=== PATIENT | female | born 1955 | race Caucasian/White ===

== ENCOUNTER 2018-09-10 01:18 | Emergency (ER) | payer MEDICAID ==
[~2018-09-10] VITALS: Ht 152.4 cm; Wt 54.5 kg
[2018-09-10 01:34] VITALS: Ht 152.4 cm; Wt 54.5 kg
[2018-09-10] MEDS ORDERED: LISINOPRIL20 MG PO ×2 (01:35→01:56)
[2018-09-10] MEDS ORDERED: CORTISPORIN OTI10 M1 EACH EAR (01:53)
[2018-09-10 02:20] VITALS: BP 140/70
== END 2018-09-10 02:21 | disposition home or self-care (01) ==
LOC: D.ER 01:18
DX: H60.92 Unspecified otitis externa, left ear (principal); I10 Essential (primary) hypertension; Z91.14 Patient's other noncompliance with medication regimen

== ENCOUNTER 2020-04-28 20:23 | Emergency (ER) | payer MEDICAID ==
[~2020-04-28] VITALS: Ht 152.4 cm; Wt 56.8 kg
[~2020-04-28 20:23] MED LIST: CORTISPORIN OTI10 M1 EACH EAR; LISINOPRIL20 MG PO
[2020-04-28 20:35] VITALS: Ht 152.4 cm; Wt 56.8 kg
[2020-04-28 20:59] LABS: BASOPHILS 0.4 % (0-2); EOSINOPHILS 3.4 % (0-7); HEMOGLOBIN 12.8 g/dL (12-16); IMMATURE GRANULOCYTES 0.4 % (0-5); LYMPHOCYTE ABS# 1.85 10x3/uL (1.18-3.74); LYMPHOCYTES 23.2 % (15-50); MCH 29.2 pg (26.0-34.0); MCHC 33.7 g/dL (31.0-37.0); MCV 86.6 fL (80.0-100.0); NEUTROPHIL ABS# 4.92 10x3/uL (1.56-6.13); NEUTROPHILS 61.6 % (40-80); PLATELET COUNT 263 10x3/uL (130-400); RBC 4.39 10x6/uL (4.00-5.40); RDW 13.8 % (11.5-14.5)
[2020-04-28 21:11] LABS: CALC OSMOLALITY 281 mosm/kg (275-300); CALCIUM 9.1 mg/dL (8.5-10.1); CARBON DIOXIDE 23.4 mmol/L (21.0-32.0); CHLORIDE - SERUM 105 mmol/L (98-107); CREATININE - SERUM 1.5 mg/dL (0.6-1.3); GLUCOSE 112 mg/dL (74-106); POTASSIUM - SERUM 3.8 mmol/L (3.5-5.1); SODIUM 138 mmol/L (136-145); UREA NITROGEN 26 mg/dL (7-18); eGFR NON AFRICAN AMERICAN 37 mL/min (90-120)
[2020-04-28 21:14] LABS: APTT 24.9 SECONDS (22.8-39.4); INR 0.96 (0.85-1.17); PROTIME 11.8 SECONDS (11.6-15.0)
[2020-04-28 21:15] LABS: D-DIMER-QUANTITATIVE 0.99 ug/mLFEU (0.20-0.54)
[2020-04-28 21:28] LABS: ALBUMIN 3.7 g/dL (3.4-5.0); ALKALINE PHOSPHATASE 198 U/L (30-120); ALT (SGPT) 36 U/L (10-68); BILIRUBIN - TOTAL 0.51 mg/dL (0.2-1.3); CKMB 1.4 U/L (0.0-3.6); CREATINE KINASE 105 UL (21-215); MAGNESIUM - SERUM 2.2 mg/dL (1.8-2.4); PRO BNP 307 pg/mL (0-125); PROTEIN - SERUM 7.6 g/dL (6.4-8.2); TROPONIN-I < 0.017 ng/mL (0.000-0.060)
[2020-04-28 22:35] LABS: BILIRUBIN NEGATIVE (NEGATIVE); KETONE NEGATIVE (NEGATIVE); NITRITE NEGATIVE (NEGATIVE); UROBILINOGEN NORMAL mg/dL (< 2)
[2020-04-28 22:39] LABS: SQUAMOUS EPITHELIAL 0-5 HPF (0-4); WHITE CELLS - URINE 0-5 HPF (0-4)
[2020-04-28 22:40] LABS: BACTERIA FEW HPF (NONE SEEN)
[2020-04-28 23:08] LABS: UDS - AMPHET POSITIVE QUAL (NEGATIVE); UDS - BARB NEGATIVE QUAL (NEGATIVE); UDS - BENZO NEGATIVE QUAL (NEGATIVE); UDS - COCAINE NEGATIVE QUAL (NEGATIVE); UDS - OPIATE NEGATIVE QUAL (NEGATIVE); UDS - PCP NEGATIVE QUAL (NEGATIVE); UDS - THC NEGATIVE QUAL (NEGATIVE)
[2020-04-29 00:13] LABS: CREATINE KINASE 85 UL (21-215)
[2020-04-29 00:16] LABS: TROPONIN-I 0.017 ng/mL (0.000-0.060)
[2020-04-29 00:59] VITALS: BP 157/93
== END 2020-04-29 01:00 | disposition home or self-care (01) ==
LOC: D.ER 20:23
PROVIDERS: Family Medicine
DX: F19.10 Other psychoactive substance abuse, uncomplicated (principal); F41.9 Anxiety disorder, unspecified; R07.9 Chest pain, unspecified; I10 Essential (primary) hypertension; Z72.0 Tobacco use